=== PATIENT | male | born 1975 | race Caucasian/White ===

== ENCOUNTER 2021-05-23 16:11 | Emergency (ER) | payer OTHER ==
[2021-05-23 16:19] VITALS: BP 132/91; PULSE 92; TEMP 98.5; BMI 29.3
[2021-05-23] MEDS ORDERED: KETOROLAC TROMETHAMINE 30 MG/1 ML VIAL IVPUSH ONE (16:32)
[2021-05-23] MEDS ORDERED: ONDANSETRON 4 MG/2 ML VIAL IVPUSH ONE (16:32)
[2021-05-23] MEDS ORDERED: SODIUM CHLORIDE 1,000 ML IV STA (16:32)
[2021-05-23] MEDS ORDERED: ONDANSETRON 4 MG/2 ML VIAL ONE (17:16)
[2021-05-23] MEDS ORDERED: KETOROLAC TROMETHAMINE 30 MG/1 ML VIAL ONE (17:16)
[2021-05-23 18:51] LABS: CALCIUM 9.3 mg/dL (8.5-10.1)
[2021-05-23 18:52] LABS: ALBUMIN 4.3 g/dl (3.4-5.0); BLOOD UREA NITROGEN 13.9 mg/dL (7-18)
[2021-05-23 18:55] LABS: CREATININE 1.4 mg/dL (0.55-1.3)
[2021-05-23 18:57] LABS: BILIRUBIN,TOTAL 0.7 mg/dL (0.2-1); TOT PROT 8.9 g/dl (6.4-8.2)
[2021-05-23 19:08] LABS: BASO % 0.3 % (0-2.0); HEMATOCRIT 51.2 % (35.4-49); HEMOGLOBIN 17.3 GM/dL (11.7-16.9); LYMPH % 10.6 % (8-40); MCH 30.7 pg (25.7-33.7); MCHC 33.7 g/dl (32.0-35.9); MEAN CELL VOLUME 90.9 fl (80-96); MONO % 7.1 % (3.8-10.2); PLATELET COUNT 247 10^3/uL (134-434); RBC 5.63 M/mm3 (4.00-5.60); RDW 13.9 % (11.9-15.9); WHITE BLOOD COUNT 11.9 K/mm3 (4.0-10.0)
[2021-05-23] MEDS ORDERED: TAMSULOSIN HCL 0.4 MG CAP PO ONE (19:19)
[2021-05-23 20:14] LABS: EPI CELLS 10 /uL (0-25.1); HYALINE CASTS 4 /uL (0-3.1); URINE APPEARANCE CLEAR; URINE BACTERIA 42 /uL (0-1359); URINE BILIRUBIN NEGATIVE (NEGATIVE); URINE COLOR YELLOW; URINE GLUCOSE (UA) NEGATIVE (NEGATIVE); URINE KETONE NEGATIVE (NEGATIVE); URINE LEUK ESTERASE NEGATIVE (NEGATIVE); URINE NITRITE NEGATIVE (NEGATIVE); URINE PROTEIN 1+ (NEGATIVE); URINE RBC 38 /uL (0-23.9); URINE UROBILINOGEN 0.2 mg/dL (0.2-1.0); URINE WBC 43 /uL (0-25.8)
[2021-05-23] MEDS ORDERED: TAMSULOSIN HCL 0.4 MG CAP ONE (20:34)
== END 2021-05-23 21:20 | disposition home or self-care (01) ==
LOC: JER 16:11
PROC: 3E0333Z Introduction of Anti-inflammatory into Peripheral Vein, Percutaneous Approach (ICD-10-PCS; principal; 2021-05-23)
PROC: 3E033GC Introduction of Other Therapeutic Substance into Peripheral Vein, Percutaneous Approach (ICD-10-PCS; 2021-05-23)
PROC: 3E0337Z Introduction of Electrolytic and Water Balance Substance into Peripheral Vein, Percutaneous Approach (ICD-10-PCS; 2021-05-23)
DX: N23 Unspecified renal colic (principal)
CPT/HCPCS: 36415; 74176-TC; 80053; 81003; 85025; 87086; 99285-25

== ENCOUNTER 2021-07-17 04:28 | Day surgery (SDC) | payer OTHER ==
[2021-07-11 15:55] VITALS: BMI 29.3
[2021-07-17] MEDS ORDERED: MIDAZOLAM HCL 2 MG/2 ML SINGLE DOSE VIAL ONE (14:39)
[2021-07-17 17:14] VITALS: BP 134/88; PULSE 58; TEMP 97.5
== END 2021-07-17 16:15 | disposition home or self-care (01) ==
LOC: JASU-SURG 04:28
PROVIDERS: ATTEND Urology
PROC: 0TF4XZZ Fragmentation in Left Kidney Pelvis, External Approach (ICD-10-PCS; principal; 2021-07-17 13:30)
DX: N20.0 Calculus of kidney (principal)